=== PATIENT | female | born 1960 | race Caucasian/White ===

== ENCOUNTER → 2016-12-25 | Day surgery (SDC) | payer BC ==
[~2016-12-25] VITALS: Ht 165.1 cm; Wt 80.5 kg
[~2016-12-25] MED LIST: ACETAMINOPHEN 1000 MG/100 ML VIAL IV ONE; ACETAMINOPHEN/HYDROcodone 325 MG/5 MG TAB PO PRN; CHLORHEXIDINE GLUCONATE 2 % 1 PACK (2 CLOTHS) TOPICAL PRN; DEXAMETHASONE SOD PHOS 4 MG/ML VIAL ONE; DICLOFENAC SODIUM 37.5 MG/ML VIAL IV PUSH ONE; DO NOT ADM ANY ANTICOAGULANT DRUGS PRN; FAMOTIDINE 20 MG/2 ML VIAL ONE; HEPARIN SODIUM - IV 10,000 UNITS/10 ML VIAL ONE; INSULIN HUMAN REGULAR 1,000 UNITS/10 ML VIAL SQ PRN; LACTATED RINGER'S 1000 ML INJ 1,000 ML IV ONE; LACTATED RINGER'S 1000 ML IV PRN; METOPROLOL TARTRATE 25 MG TAB PO PRN; MIDAZOLAM HCL 2 MG/2 ML VIAL ONE; ONDANSETRON HCL 4 MG/2 ML VIAL IV PRN; ONDANSETRON HCL 4 MG/2 ML VIAL IV PUSH ONE; PHENYLEPH/NS 1000 MCG/10 ML SYR IV ONE; POVIDONE IODINE 5% (ANTISEPSIS KIT) 4 APPLICATIONS EACH NARE PRN; PROPOFOL 200 MG/20 ML AMP IV ONE; Post-op Orders (for Pharmacy) MISC XX ONE; SODIUM BICARBONATE 8.4% INJ 50 ML ONE; SODIUM CHLORID 0.9% 500 ML IV PRN; SODIUM CHLORIDE 0.9% 20 ML VIAL ONE; SODIUM CHLORIDE 0.9% FLUSH 10 ML FLUSH IV FLUSH PRN; SODIUM CHLORIDE 0.9% FLUSH 10 ML FLUSH IV FLUSH SCH; VANCOMYCIN HCL 1000 MG ON-CALL/NS 250 ML IV SCH; ePHEDrine/NS 25 MG/5 ML SYR IV ONE
[2016-12-25 09:27] VITALS: BP 130/87; PULSE 70; RESP 18; TEMP 98.8; O2SAT 97
[2016-12-25 10:34] LABS: AUTOMATED NEUTROPHIL # 5.5 TH/MM3 (1.8-7.7); BASOPHIL # 0.1 TH/MM3 (0-0.2); BASOPHIL % 1.2 % (0.0-2.0); EOSINOPHIL # 0.2 TH/MM3 (0-0.4); EOSINOPHIL % 1.7 % (0.0-4.0); HEMATOCRIT 44.4 % (35.0-46.0); HEMO FLAGS DIFF FINAL; LYMPH % 34.3 % (9.0-44.0); LYMPHOCYTE # 3.3 TH/MM3 (1.0-4.8); MEAN CELL VOLUME 89.4 FL (80.0-100.0); MEAN CORPUSCULAR HEMOGLOBIN 31.5 PG (27.0-34.0); MEAN CORPUSCULAR HGB CONC 35.3 % (32.0-36.0); MONO % 6.5 % (0.0-8.0); NEUT % 56.3 % (16.0-70.0); PLATELET COUNT 186 TH/MM3 (150-450); RED BLOOD COUNT 4.96 MIL/MM3 (4.00-5.30); RED CELL DISTRIBUTION WIDTH 13.4 % (11.6-17.2); WHITE BLOOD COUNT 9.7 TH/MM3 (4.0-11.0)
--- NOTE | 2016-12-25 12:15 | PD.OP ---
Operative Report Date of Surgery: Dec 25, 2016 Preoperative Diagnosis: breast cancer Postoperative Diagnosis: same Procedure: R subclavian infusaport placement under direct fluoroscopy Anesthesia: general LMA Surgeon: Shankar Szymanski Project Manager Interior Design(s): Swati Martin MS3 Operation and Findings: successful placement with tip in SVC. Good port function. pCXR in PACU. Shankar Szymanski MD Dec 25, 2016 12:15
--- NOTE | 2016-12-25 13:13 | RADRPT ---
EXAM DATE/TIME: 12/25/2016 12:43 [place] COMPARISON: No previous studies available for comparison. INDICATIONS : Port placement. MEDICAL HISTORY : None. SURGICAL HISTORY : None. ENCOUNTER: Initial ACUITY: 1 day PAIN SCORE: 0/10 LOCATION: Bilateral chest FINDINGS: A right subclavian Oblnwj-Z-Hrcm has its tip in the SVC. There is no pneumothorax. The heart is nor mal. The pulmonary vascular pattern is also normal. The lungs are clear. CONCLUSION: Right subclavian Gsjjyl-X-Qziy has its tip in the SVC. There is no pneumothorax. Aime Manuel MD on December 25, 2016 at 13:08 Board Certified Radiologist. This report was verified electronically.
[2016-12-25 13:40] VITALS: BP 101/68; PULSE 60; RESP 18; TEMP 97.2; O2SAT 95
--- NOTE | 2016-12-25 16:41 | EKG ---
Date Performed: 12/25/2016 Time Performed: 09:19:51 PTAGE: 56 years EKG: Sinus rhythm NORMAL ECG NO PREVIOUS TRACING DOCTOR: Aurelio Gonzalez Interpretating Date/Time 12/25/2016 16:40:43
--- NOTE | 2016-12-26 07:07 | MP ---
cc: EDUARDO MONTANA M.D., DAVID G. M.D. DATE OF SURGERY 12/25/2016 PREOPERATIVE DIAGNOSIS Left breast cancer. POSTOPERATIVE DIAGNOSIS Left breast cancer. PROCEDURE Right subclavian Jzpxwp-N-Xsxe placement under direct fluoroscopy. SURGEON Dr. Shankar Szymanski MEAT PRESS OPERATOR Swati Martin, MS-3 ANESTHESIA General with laryngeal mask INDICATIONS This is a very pleasant 56-year-old woman who was recently diagnosed with a poorly differentiated left breast cancer greater than 3 cm diameter on MRI. High risk clinic pathologic features have resulted in the recommendation for neoadjuvant chemotherapy. Port placement is indicated. INTRAOPERATIVE FINDINGS Successful placement of right subclavian Gddyao-L-Hjmk with tip of catheter in the distal superior vena cava. Port function was tested. There was easy blood return in forward concentrated heparinized saline flush flow through the port. A portable chest x-ray is ordered in the PACU. ESTIMATED BLOOD LOSS Less than 10 mL DESCRIPTION OF PROCEDURE IN DETAIL The patient identified as Janice Valderrama, taken to the operating room, placed in the supine position with sequential compression devices on bilateral lower extremities. Following IV sedation, a rolled sheet was placed beneath the shoulder blades and the patient's arms were tucked. She was given sedation. She was unable to stay still. She has converted to a general laryngeal mask anesthetic. She was reprepped and then draped in a sterile fashion. A time-out procedure was performed. Following completion of time-out procedure to everyone's satisfaction within the room, the right subclavian area was infiltrated local anesthetic. With the patient in Trendelenburg position, the right subclavian vein was entered without difficulty with an introducer needle and the guide wire was advanced without obstruction into the superior vena cava. C-arm fluoroscopic images demonstrated the presence of the guidewire in the appropriate position. An incision was made at the guidewire exit site and an Ayjxxt-O-Axdm pocket was developed. The power port, which was flushed with heparinized saline, was placed into the Joycqy-X-Ywve pocket two 2-0 Prolene stay sutures. The catheter was then cut to an appropriate length as seen on C-arm fluoroscopy. Dilator and dilating sheath were placed over the guidewire, the guidewire and dilator were removed. The catheter was fed through a dilating sheath which was then removed. C-arm fluoroscopy demonstrated the tip of the catheter into the superior vena cava. Port function was tested. There was easy blood return and forwarded concentrated heparinized saline flush/flow through the port. The port pocket was closed in layers with 3-0 Vicryl and 4-0 Monocryl and dressing applied with Mastisol, half-inch brown Steri-Strips, gauze and Tegaderm. The patient tolerated the procedure without apparent complication. Sponge, needle and instrument counts correct at the end of the case. MD VERONIKA Koehler/NATALIIA /12:11 PM /6:54 AM
== END | disposition home or self-care (01) ==
LOC: HSDC 08:38
PROVIDERS: ATTEND Surgery Trauma Surgery
DX: Z45.2 Encounter for adjustment and management of vascular access device (principal); C50.912 Malignant neoplasm of unspecified site of left female breast; Z01.810 Encounter for preprocedural cardiovascular examination
CPT/HCPCS: 00532; 36561; 71010; 77001; 85025; 93005; C1788; J0131; J1100; J1130; J1644; J2250; J2370; J2405; J3010; J3370; J7050; J7120